=== PATIENT | female | born 1970 | race Caucasian/White ===

== ENCOUNTER 2017-11-10 11:57 | Observation (INO) | payer BC ==
--- NOTE | 2017-11-10 12:18 | ER Document Report ---
ED Medical Screen (RME) - General Chief Complaint: Dizziness Stated Complaint: BLOOD PRESSURE ISSUE Time Seen by Provider: 11/10/17 12:11 Notes: 47-year-old female patient comes emerged from complaining of feeling dizzy this morning. She states sometimes it happens when her sugar drops that she ate but it did not help. She was at work and felt bad and had her blood pressure checked. It was 158/110, she also developed a numbness and tingling into her left arm. She has a history of hypertension treated with only HCTZ, hypothyroidism, and takes Cymbalta. She notes that she has had peripheral edema involving her feet ankles and hands for the past 2 days. I have greeted and performed a rapid initial assessment of this patient. A comprehensive ED assessment and evaluation of the patient, analysis of test results and completion of the medical decision making process will be conducted by additional ED providers. - Related Data Allergies/Adverse Reactions: codeine Allergy (Verified 11/10/17 11:59) morphine Allergy (Verified 11/10/17 11:59) Sulfa (Sulfonamide Antibiotics) Allergy (Verified 11/10/17 11:59) Physical Exam - Vital signs Vitals: Temp Pulse Resp BP Pulse Ox 98.4 F 78 14 130/91 H 97 11/10/17 12:09 11/10/17 12:09 11/10/17 12:09 11/10/17 12:09 11/10/17 12:09 Course - Vital Signs Vital signs: Temp Pulse Resp BP Pulse Ox 98.4 F 78 14 130/91 H 97 11/10/17 12:09 11/10/17 12:09 11/10/17 12:09 11/10/17 12:09 11/10/17 12:09
[2017-11-10 12:52] LABS: ABSOLUTE BASOPHILS # (AUTO) 0.1 10^3/uL (0.0-0.2); ABSOLUTE EOSINOPHILS # (AUTO) 0.3 10^3/uL (0.0-0.6); ABSOLUTE LYMPHOCYTES (AUTO) 1.9 10^3/uL (0.5-4.7); ABSOLUTE MONOCYTES (AUTO) 0.5 10^3/uL (0.1-1.4); BASOPHILS % (AUTO) 0.8 % (0-2); EOSINOPHILS % (AUTO) 4.2 % (0-6); HEMATOCRIT 35.8 % (36.0-47.0); HEMOGLOBIN 12.4 g/dL (12.0-15.5); LYMPHOCYTES % (AUTO) 28.1 % (13-45); MEAN CORPUSCULAR HEMOGLOBIN 28.9 pg (27.0-33.4); MEAN CORPUSCULAR HGB CONC 34.5 g/dL (32.0-36.0); MEAN CORPUSCULAR VOLUME 84 fl (80-97); MONOCYTES % (AUTO) 7.6 % (3-13); PLATELET COUNT 302 10^3/uL (150-450); RED BLOOD COUNT 4.28 10^6/uL (3.72-5.28); RED CELL DISTRIBUTION WIDTH 13.8 % (11.5-14.0); SEGMENTED NEUTROPHILS % (AUTO) 59.3 % (42-78); TOTAL CELLS COUNTED % (AUTO) 100 %; WHITE BLOOD COUNT 6.8 10^3/uL (4.0-10.5)
--- NOTE | 2017-11-10 12:54 | RADIOLOGY REPORT (SQ) ---
EXAM DESCRIPTION: CHEST 2 VIEWS COMPLETED DATE/TIME: 11/10/2017 12:45 pm REASON FOR STUDY: High blood pressure, left arm numbness tingling COMPARISON: None. EXAM PARAMETERS: NUMBER OF VIEWS: two views TECHNIQUE: Digital Frontal and Lateral radiographic views of the chest acquired. RADIATION DOSE: NA LIMITATIONS: none FINDINGS: LUNGS AND PLEURA: No opacities, masses or pneumothorax. No pleural effusion. MEDIASTINUM AND HILAR STRUCTURES: No masses or contour abnormalities. HEART AND VASCULAR STRUCTURES: Heart normal size. No evidence for failure. BONES: No acute findings. HARDWARE: None in the chest. Clips right upper quadrant post cholecystectomy OTHER: No other significant finding. IMPRESSION: NO ACUTE RADIOGRAPHIC FINDING IN THE CHEST. TECHNICAL DOCUMENTATION: JOB ID: [id number] [employer]- All Rights Reserved Reading location - IP/workstation name: [email or web address]
[2017-11-10 13:03] LABS: ALANINE AMINOTRANSFERASE 50 U/L (9-52); ALBUMIN 3.9 g/dL (3.5-5.0); ALKALINE PHOSPHATASE 114 U/L (38-126); ANION GAP 7 (5-19); ASPARTATE AMINO TRANSFERASE 37 U/L (14-36); BILIRUBIN,DIRECT 0.4 mg/dL (0.0-0.4); BILIRUBIN,TOTAL 0.5 mg/dL (0.2-1.3); BLOOD UREA NITROGEN 14 mg/dL (7-20); CARBON DIOXIDE 34 mmol/L (22-30); CHLORIDE 101 mmol/L (98-107); CREATINE KINASE 96 U/L (30-135); GLUCOSE 110 mg/dL (75-110); POTASSIUM 3.8 mmol/L (3.6-5.0); SODIUM 142.4 mmol/L (137-145); TOTAL PROTEIN 6.9 g/dL (6.3-8.2)
[2017-11-10 13:07] LABS: APPEARANCE,URINE CLEAR; BILIRUBIN,URINE NEGATIVE (NEGATIVE); COLOR,URINE STRAW; GLUCOSE, URINE NEGATIVE (NEGATIVE); KETONES,URINE NEGATIVE (NEGATIVE); LEUKOCYTE ESTERASE,URINE NEGATIVE (NEGATIVE); NITRITE,URINE NEGATIVE (NEGATIVE); PROTEIN,URINE NEGATIVE (NEGATIVE); URINE SPECIFIC GRAVITY 1.006; UROBILINOGEN,URINE NEGATIVE mg/dL (<2.0)
[2017-11-10 13:14] LABS: CREATINE KINASE MB 0.97 ng/mL (<4.55)
[2017-11-10 13:15] LABS: TROPONIN I < 0.012 ng/mL
--- NOTE | 2017-11-10 14:39 | ER Document Report ---
ED General - General Chief Complaint: Dizziness Stated Complaint: BLOOD PRESSURE ISSUE Time Seen by Provider: 11/10/17 14:00 Mode of Arrival: Ambulatory Information source: Patient Notes: I have seen and examined patient at 1400 47-year-old female with a history of fibromyalgia, hypertension, hypothyroidism , hypoglycemia and GERD who presents to the emergency room with left arm tingling for approximately 24 hours, dizziness, sense of imbalance since early this morning. Time of onset of the sense of imbalance is not quite clear: Patient did notice symptoms between 630 and 7:30 AM this morning. Patient did state that she checked her blood pressure at work and it was 185/110. Patient' s states that he spoke to his over the phone and she sounded a little bit out of breath and her speech sounded a little slurred but that when he met her at the hospital, her speech is normal. - HPI Onset: Yesterday Onset/Duration: Gradual Quality of pain: No pain Severity: None Pain Level: Denies Associated symptoms: denies: Chest pain, Fever, Shortness of breath Exacerbated by: Denies Relieved by: Denies Similar symptoms previously: No Recently seen / treated by doctor: No - Related Data Allergies/Adverse Reactions: codeine Allergy (Verified 11/10/17 11:59) morphine Allergy (Verified 11/10/17 11:59) Sulfa (Sulfonamide Antibiotics) Allergy (Verified 11/10/17 11:59) onions Allergy (Uncoded 11/10/17 18:44) Past Medical History - General Information source: Patient - Social History Smoking Status: Never Smoker Cigarette use (# per day): No Chew tobacco use (# tins/day): No Frequency of alcohol use: Occasional Drug Abuse: None Lives with: Family Family History: None Patient has suicidal ideation: No Patient has homicidal ideation: No - Past Medical History Cardiac Medical History: Reports: Hx Hypertension Pulmonary Medical History: Reports: None EENT Medical History: Reports: None Neurological Medical History: Reports: None Endocrine Medical History: Reports: Hx Hypothyroidism, Other - Hypoglycemia Renal/ Medical History: Reports: None. Denies: Hx Peritoneal Dialysis Malignancy Medical History: Reports: None GI Medical History: Reports: Hx Gastroesophageal Reflux Disease Musculoskeletal Medical History: Reports Hx Fibromyalgia Traumatic Medical History: Reports: None Infectious Medical History: Reports: None Surgical Hx: Negative Review of Systems - Review of Systems Constitutional: denies: Chills, Fever EENT: No symptoms reported Cardiovascular: Dizziness - Elevated blood pressure Respiratory: No symptoms reported Gastrointestinal: No symptoms reported Genitourinary: No symptoms reported Female Genitourinary: No symptoms reported Musculoskeletal: See HPI Skin: No symptoms reported Hematologic/Lymphatic: No symptoms reported Neurological/Psychological: See HPI Physical Exam - Vital signs Vitals: Temp Pulse Resp BP Pulse Ox 98.4 F 78 14 130/91 H 97 11/10/17 12:09 11/10/17 12:09 11/10/17 12:09 11/10/17 12:09 11/10/17 12:09 Notes: Physical exam: GENERAL: Patient is alert and oriented x3, no acute distress, conversant, blood pressure is 120/87 with a pulse of 80, respiratory rate of 18, O2 sat 98% on room air HEAD: Atraumatic, normocephalic. EYES: Pupils equal round and reactive to light, extraocular movements intact, sclera anicteric, conjunctiva are normal. ENT: TMs normal, nares patent, oropharynx clear without exudates. Moist mucous membranes. NECK: Normal range of motion, supple without obvious mass or JVD. LUNGS: Breath sounds clear to auscultation bilaterally and equal. No wheezes rales or rhonchi. HEART: Regular rate and rhythm without murmurs, rubs or gallops. ABDOMEN: Soft, normoactive bowel sounds. No tenderness to palpation. No guarding, no rebound. No masses appreciated. EXTREMITIES: Normal range of motion, no pitting or edema. No clubbing or cyanosis. NEUROLOGICAL: Cranial nerves II through XII grossly intact. Normal speech, moving all extremities. His motor is 5/5 upper extremities, 4/5 to the left lower extremity, 5/5 right lower extremity, cerebellar (finger to nose is good). NIH score at 1410 patient is alert and keenly responsive, she does know the month and her age, she is able to perform commands appropriately, her gaze is normal, her visual kellogg are very good, she has no facial palsy, she has no motor arm drift on the right side, she does have drift but does not touch the bed for the left upper extremity (1), she does have left lower extremity drift but it does not touch the bed (1), right lower extremity has no drift, no ataxia , no sensory deficit, best language is normal, there is no dysarthria, there is no extension or inattention. Her NIH score is 2. She definitely has some left- sided weakness. PSYCH: Normal mood, normal affect. SKIN: Warm, Dry, normal turgor, no rashes or lesions noted. Course - Re-evaluation Re-evalutation: 11/10/17 16:01 Note: Patient has left-sided weakness in the setting of elevated blood pressure. Her symptoms of onset was somewhere between 7 hours prior to my exam and longer (sometime yesterday). She does not meet criteria for thrombolytics based upon the time of onset (greater than 7 hours at a minimum, possibly up to 19 hours). Her NIH score is 2. CTA head shows no obvious lesions necessitating transfer. The plan will be to admit her for further evaluation. 11/10/17 22:54 - Vital Signs Vital signs: Temp Pulse Resp BP Pulse Ox 98.4 F 80 20 115/63 98 11/10/17 20:13 11/10/17 20:13 11/10/17 20:13 11/10/17 20:13 11/10/17 20:13 - Laboratory Result Diagrams: 11/10/17 12:23 11/10/17 12:23 Laboratory results interpreted by me: 11/10/17 11/10/17 12:23 12:23 Hct 35.8 L Carbon Dioxide 34 H AST 37 H - Diagnostic Test Radiology reviewed: Image reviewed, Reports reviewed - CT of the head, CTA of the head and neck: Show no lesions - EKG Interpretation by Me Rate: Normal Rhythm: NSR - EKG shows normal sinus rhythm with a ventricular rate of 79, no acute ST elevation. Critical Care Note - Critical Care Note Total time excluding time spent on procedures (mins): 60 Discharge - Discharge Clinical Impression: CVA Condition: Stable Disposition: ADMITTED INPATIENT Admitting Provider: Hospitalist - Dr Irving Unit Admitted: [facility]
--- NOTE | 2017-11-10 15:21 | RADIOLOGY REPORT (SQ) ---
EXAM DESCRIPTION: CT HEAD WITHOUT; CTA NECK; CTA HEAD COMPLETED DATE/TIME: 11/10/2017 3:03 pm REASON FOR STUDY: left sided weakness COMPARISON: None. TECHNIQUE: Precontrast standard brain CT scanning performed. Axial dynamic scanning technique with dynamic contrast enhancement through the extra-cranial carotid and vertebral arteries and [place]. Multiplanar reconstruction. 3-D MIPS and Volume-rendered images acquired at the workstati on and saved to PACS. Images are reviewed in brain, subdural, soft tissue, bone, lung windows. All CT scanners at this facility use dose modulation, iterative reconstruction, and/or weight based d osing when appropriate to reduce radiation dose to as low as reasonably achievable (ALARA). [facility]: Dose Right [facility]: CareDose [facility]: Dose Right [facility]: Teradose 4D [facility]: [employer] CONTRAST TYPE AND DOSE: contrast/concentration: Isovue 350.00 mg/ml; Total Contrast Delivered: 70.0 ml; Total Saline Delivered: 75.0 ml RENAL FUNCTION: Creatinine 0.75 LIMITATIONS: None. FINDINGS: Brain: No acute abnormality. Normal ventricles. No hemorrhage or mass or shift or orbital pathology. Bone s intact. Paranasal sinuses clear. CTA neck: Normal visualized aortic arch. Normal 3 vessel origin. Bilateral subclavian arteries look patent. Right common, internal and external carotid arteries are widely patent. Left common, internal and ex ternal carotid arteries are widely patent. Bilateral vertebral arteries are patent. Presumed large bulla in the left upper lobe. Pneumothorax less likely. Incomplete evaluation. Radiographs from [facility] fail to show any pneumothorax here. CTA [place]: Distal vertebral and basilar arteries are patent. Distal internal carotids, bilateral anterior and m iddle and posterior cerebral arteries are patent. No evidence of aneurysm or occlusion. No enhancin g brain lesions. OTHER: No other significant finding. OTHER: 3-D reconstructions confirm findings. IMPRESSION: 1. Negative noncontrast CT brain. 2. Negative CTA [place]. 3. Negative CTA carotids. 4. Apical lung changes as above, suspect a large bulla in the left apex. COMMENT: Quality ID #[id number]: Measurements of distal internal carotid diameter were used as the denomina tor for stenosis measurement. TECHNICAL DOCUMENTATION: JOB ID: [id number] Quality ID # [id number]: Final reports with documentation of one or more dose reduction techniques (e.g., Au tomated exposure control, adjustment of the mA and/or kV according to patient size, use of iterative reconstruction technique) 2010 [employer]- All Rights Reserved Reading location - IP/workstation name: [email or web address]
--- NOTE | 2017-11-10 15:21 | RADIOLOGY REPORT (SQ) ---
EXAM DESCRIPTION: CT HEAD WITHOUT; CTA NECK; CTA HEAD COMPLETED DATE/TIME: 11/10/2017 3:03 pm REASON FOR STUDY: left sided weakness COMPARISON: None. TECHNIQUE: Precontrast standard brain CT scanning performed. Axial dynamic scanning technique with dynamic contrast enhancement through the extra-cranial carotid and vertebral arteries and [place]. Multiplanar reconstruction. 3-D MIPS and Volume-rendered images acquired at the workstati on and saved to PACS. Images are reviewed in brain, subdural, soft tissue, bone, lung windows. All CT scanners at this facility use dose modulation, iterative reconstruction, and/or weight based d osing when appropriate to reduce radiation dose to as low as reasonably achievable (ALARA). [facility]: Dose Right [facility]: CareDose [facility]: Dose Right [facility]: Teradose 4D [facility]: [employer] CONTRAST TYPE AND DOSE: contrast/concentration: Isovue 350.00 mg/ml; Total Contrast Delivered: 70.0 ml; Total Saline Delivered: 75.0 ml RENAL FUNCTION: Creatinine 0.75 LIMITATIONS: None. FINDINGS: Brain: No acute abnormality. Normal ventricles. No hemorrhage or mass or shift or orbital pathology. Bone s intact. Paranasal sinuses clear. CTA neck: Normal visualized aortic arch. Normal 3 vessel origin. Bilateral subclavian arteries look patent. Right common, internal and external carotid arteries are widely patent. Left common, internal and ex ternal carotid arteries are widely patent. Bilateral vertebral arteries are patent. Presumed large bulla in the left upper lobe. Pneumothorax less likely. Incomplete evaluation. Radiographs from [facility] fail to show any pneumothorax here. CTA [place]: Distal vertebral and basilar arteries are patent. Distal internal carotids, bilateral anterior and m iddle and posterior cerebral arteries are patent. No evidence of aneurysm or occlusion. No enhancin g brain lesions. OTHER: No other significant finding. OTHER: 3-D reconstructions confirm findings. IMPRESSION: 1. Negative noncontrast CT brain. 2. Negative CTA [place]. 3. Negative CTA carotids. 4. Apical lung changes as above, suspect a large bulla in the left apex. COMMENT: Quality ID #[id number]: Measurements of distal internal carotid diameter were used as the denomina tor for stenosis measurement. TECHNICAL DOCUMENTATION: JOB ID: [id number] Quality ID # [id number]: Final reports with documentation of one or more dose reduction techniques (e.g., Au tomated exposure control, adjustment of the mA and/or kV according to patient size, use of iterative reconstruction technique) 2010 [employer] ([employer])- All Rights Reserved Reading location - IP/workstation name: [email or web address]
--- NOTE | 2017-11-10 15:21 | RADIOLOGY REPORT (SQ) ---
EXAM DESCRIPTION: CT HEAD WITHOUT; CTA NECK; CTA HEAD COMPLETED DATE/TIME: 11/10/2017 3:03 pm REASON FOR STUDY: left sided weakness COMPARISON: None. TECHNIQUE: Precontrast standard brain CT scanning performed. Axial dynamic scanning technique with dynamic contrast enhancement through the extra-cranial carotid and vertebral arteries and [place]. Multiplanar reconstruction. 3-D MIPS and Volume-rendered images acquired at the workstati on and saved to PACS. Images are reviewed in brain, subdural, soft tissue, bone, lung windows. All CT scanners at this facility use dose modulation, iterative reconstruction, and/or weight based d osing when appropriate to reduce radiation dose to as low as reasonably achievable (ALARA). [facility]: Dose Right [facility]: CareDose [facility]: Dose Right [facility]: Teradose 4D [facility]: [employer] CONTRAST TYPE AND DOSE: contrast/concentration: Isovue 350.00 mg/ml; Total Contrast Delivered: 70.0 ml; Total Saline Delivered: 75.0 ml RENAL FUNCTION: Creatinine 0.75 LIMITATIONS: None. FINDINGS: Brain: No acute abnormality. Normal ventricles. No hemorrhage or mass or shift or orbital pathology. Bone s intact. Paranasal sinuses clear. CTA neck: Normal visualized aortic arch. Normal 3 vessel origin. Bilateral subclavian arteries look patent. Right common, internal and external carotid arteries are widely patent. Left common, internal and ex ternal carotid arteries are widely patent. Bilateral vertebral arteries are patent. Presumed large bulla in the left upper lobe. Pneumothorax less likely. Incomplete evaluation. Radiographs from [facility] fail to show any pneumothorax here. CTA [place]: Distal vertebral and basilar arteries are patent. Distal internal carotids, bilateral anterior and m iddle and posterior cerebral arteries are patent. No evidence of aneurysm or occlusion. No enhancin g brain lesions. OTHER: No other significant finding. OTHER: 3-D reconstructions confirm findings. IMPRESSION: 1. Negative noncontrast CT brain. 2. Negative CTA [place]. 3. Negative CTA carotids. 4. Apical lung changes as above, suspect a large bulla in the left apex. COMMENT: Quality ID #[id number]: Measurements of distal internal carotid diameter were used as the denomina tor for stenosis measurement. TECHNICAL DOCUMENTATION: JOB ID: [id number] Quality ID # [id number]: Final reports with documentation of one or more dose reduction techniques (e.g., Au tomated exposure control, adjustment of the mA and/or kV according to patient size, use of iterative reconstruction technique) 2010 [employer] All Rights Reserved Reading location - IP/workstation name: [email or web address]
[2017-11-10] MEDS ORDERED: ACETAMINOPHEN 325 MG TABLET PO PRN (17:15)
[2017-11-10] MEDS ORDERED: NORMAL SALINE 1000 ML 1,000 ML IV PRN (17:15)
--- NOTE | 2017-11-10 17:44 | PDOC H&P ---
History of Present Illness Admission Date/PCP: 11/10/17 16:32 Patient complains of: Left upper extremity numbness and tingling History of Present Illness: JAYSON OLSEN is a 47 year old female past medical history of hypertension , irritable bowel syndrome, hypothyroidism, fibromyalgia, hypokalemia, GERD, precancerous colonic polyp last colonoscopy/upper GI endoscopy 3 years ago. Patient gets colonoscopy every 5 years. Patient presented to ED complaining of numbness and tingling on the left upper extremity and weakness on the left leg. Patient states that yesterday evening she started having tingling on her left side of the neck going down to the left upper extremity. She did not make too much of it the following day at work she noticed that her left upper extremity tingling increased accompanied with dizziness and left lower extremity weakness. Patient denies any palpitation, chest pain or loss of consciousness however she states that she was out of balance, when walking she would lean to the right side. She denies any fever, chills, nausea, vomiting, diarrhea, constipation or any urinary symptoms. Past Medical History EENT Medical History: Reports: Cataracts Endocrine Medical History: Reports: Hyperthyroidism Renal/ Medical History: Reports: None Malignancy Medical History: Reports: None GI Medical History: Reports: Gastroesophageal Reflux Disease Musculoskeltal Medical History: Reports: Fibromyalgia Past Surgical History Past Surgical History: Reports: None, Cholecystectomy Social History Smoking Status: Never Smoker Family History Family History: None Parental Family History Reviewed: Yes Children Family History Reviewed: Yes Sibling(s) Family History Reviewed.: Yes Medication/Allergy Allergies/Adverse Reactions: codeine Allergy (Verified 11/10/17 11:59) morphine Allergy (Verified 11/10/17 11:59) Sulfa (Sulfonamide Antibiotics) Allergy (Verified 11/10/17 11:59) Review of Systems All systems: reviewed and no additional remarkable complaints except as stated Physical Exam Vital Signs: Temp Pulse Resp BP Pulse Ox 98.4 F 75 22 H 121/78 97 11/10/17 12:09 11/10/17 15:17 11/10/17 17:01 11/10/17 17:01 11/10/17 17:01 General appearance: PRESENT: no acute distress, well-developed, well-nourished Head exam: PRESENT: atraumatic, normocephalic Eye exam: PRESENT: conjunctiva pink, EOMI, PERRLA. ABSENT: scleral icterus Ear exam: PRESENT: normal external ear exam Mouth exam: PRESENT: moist, tongue midline Neck exam: ABSENT: carotid bruit, JVD, lymphadenopathy, thyromegaly Respiratory exam: PRESENT: clear to auscultation cesar. ABSENT: rales, rhonchi, wheezes Cardiovascular exam: PRESENT: RRR. ABSENT: diastolic murmur, rubs, systolic murmur Pulses: PRESENT: normal dorsalis pedis pul Vascular exam: PRESENT: normal capillary refill GI/Abdominal exam: PRESENT: normal bowel sounds, soft. ABSENT: distended, guarding, mass, organolmegaly, rebound, tenderness Rectal exam: PRESENT: deferred Extremities exam: PRESENT: full ROM. ABSENT: calf tenderness, clubbing, pedal edema Neurological exam: PRESENT: alert, awake, oriented to person, oriented to place , oriented to time, oriented to situation, CN II-XII grossly intact, motor sensory deficit - Left quadricep strength 4/5 Loss of sensation on left third metacarpal., normal gait Psychiatric exam: PRESENT: appropriate affect, normal mood. ABSENT: homicidal ideation, suicidal ideation Skin exam: PRESENT: dry, intact, warm. ABSENT: cyanosis, rash Results Laboratory Results: 11/10/17 16:37 Troponin I < 0.012 Impressions: Chest X-Ray 11/10/17 12:16 IMPRESSION: NO ACUTE RADIOGRAPHIC FINDING IN THE CHEST. Head CT 11/10/17 14:35 IMPRESSION: 1. Negative noncontrast CT brain. 2. Negative CTA [place]. 3. Negative CTA carotids. 4. Apical lung changes as above, suspect a large bulla in the left apex. Head CTA 11/10/17 14:39 IMPRESSION: 1. Negative noncontrast CT brain. 2. Negative CTA [place]. 3. Negative CTA carotids. 4. Apical lung changes as above, suspect a large bulla in the left apex. Neck CTA 11/10/17 14:39 IMPRESSION: 1. Negative noncontrast CT brain. 2. Negative CTA [place]. 3. Negative CTA carotids. 4. Apical lung changes as above, suspect a large bulla in the left apex. Assessment & Plan - Diagnosis (1) TIA (transient ischemic attack) Is this a current diagnosis for this admission?: Yes Plan: CT head negative CTA head and neck negative. Troponins and EKG unremarkable. Admit to telemetry. 2D echo, MRI brain ordered. Will start on low-dose aspirin and statins. PT OT ST (2) HTN (hypertension) Qualifiers: Hypertension type: essential hypertension Qualified Code(s): I10 - Essential (primary) hypertension Is this a current diagnosis for this admission?: No Plan: Resume lisinopril at 20 mg. Adjust dosage as needed. Monitor vitals (3) Hyperthyroidism Is this a current diagnosis for this admission?: No Plan: Restart levothyroxine. No signs of hyper or hypothyroidism on physical examination and review of system (4) Fibromyalgia Is this a current diagnosis for this admission?: No Plan: Restart Cymbalta. (5) GERD (gastroesophageal reflux disease) Is this a current diagnosis for this admission?: Yes Plan: Will start on PPIs. Patient has had upper GI endoscopy 3 years ago which was normal.
--- NOTE | 2017-11-10 18:33 | RADIOLOGY REPORT (SQ) ---
EXAM DESCRIPTION: MRI HEAD WITHOUT COMPLETED DATE/TIME: 11/10/2017 6:20 pm REASON FOR STUDY: TIA COMPARISON: Brain CT scan dated 11/10/2017 TECHNIQUE: Multiplanar imaging includes non-contrasted T1, T2, FLAIR, and diffusion with ADC map seq uences. Images stored on PACS. LIMITATIONS: None. FINDINGS: ANATOMY: No anomalies. Normal vascular flow voids. Pituitary fossa normal. CSF SPACES: Normal in size and contour. No hemorrhage. CEREBRUM: Sulci and gyri normal in size and contour. Normal white matter signal on FLAIR imaging. No evidence of hemorrhage, mass, or extraaxial fluid collection. POSTERIOR FOSSA: No signal alteration. No hemorrhage. No edema, masses or mass effect. Internal nancy tory canals, cerebello-pontine angles, mastoids normal. DIFFUSION IMAGING: Negative for acute or sub-acute infarction. ORBITS: No masses. Globes normal. PARANASAL SINUSES: No fluid levels. Mucosa normal. OTHER: No other significant finding. IMPRESSION: NORMAL MRI OF THE BRAIN WITHOUT INTRAVENOUS GADOLINIUM CONTRAST. EVIDENCE OF ACUTE STROKE: NO. TECHNICAL DOCUMENTATION: JOB ID: [id number] [employer]- All Rights Reserved Reading location - IP/workstation name: [email or web address]
--- NOTE | 2017-11-10 20:23 | EKG REPORT ---
SEVERITY:- NORMAL ECG - SINUS RHYTHM : Confirmed by: Estelle Huerta 10-Nov-2017 20:23:03
--- NOTE | 2017-11-10 20:23 | EKG REPORT ---
SEVERITY:- NORMAL ECG - SINUS RHYTHM : Confirmed by: Estelle Huerta 10-Nov-2017 20:22:54
[2017-11-10] MEDS ORDERED: ATORVASTATIN CALCIUM 10 MG TABLET PO SCH (22:00)
[2017-11-10] MEDS ORDERED: FAMOTIDINE 20 MG TABLET PO SCH (22:00)
[2017-11-10] MEDS: GABAPENTIN 300 MG CAPSULE PO SCH (22:16)
[2017-11-10] MEDS: CHOLESTYRAMINE/ASPARTAME 4 GM PACKET PO SCH (22:16)
[2017-11-11 05:02] LABS: ABSOLUTE EOSINOPHILS # (AUTO) 0.3 10^3/uL (0.0-0.6); ABSOLUTE LYMPHOCYTES (AUTO) 1.9 10^3/uL (0.5-4.7); ABSOLUTE MONOCYTES (AUTO) 0.5 10^3/uL (0.1-1.4); ABSOLUTE NEUT (AUTO) 3.9 10^3/uL (1.7-8.2); BASOPHILS % (AUTO) 0.7 % (0-2); EOSINOPHILS % (AUTO) 4.5 % (0-6); HEMATOCRIT 32.9 % (36.0-47.0); HEMOGLOBIN 11.6 g/dL (12.0-15.5); LYMPHOCYTES % (AUTO) 28.5 % (13-45); MEAN CORPUSCULAR HGB CONC 35.2 g/dL (32.0-36.0); MEAN CORPUSCULAR VOLUME 82 fl (80-97); MONOCYTES % (AUTO) 7.4 % (3-13); PLATELET COUNT 251 10^3/uL (150-450); RED CELL DISTRIBUTION WIDTH 13.4 % (11.5-14.0); SEGMENTED NEUTROPHILS % (AUTO) 58.9 % (42-78); TOTAL CELLS COUNTED % (AUTO) 100 %; WHITE BLOOD COUNT 6.6 10^3/uL (4.0-10.5)
[2017-11-11 05:21] LABS: ALANINE AMINOTRANSFERASE 49 U/L (9-52); ALKALINE PHOSPHATASE 85 U/L (38-126); ANION GAP 8 (5-19); ASPARTATE AMINO TRANSFERASE 31 U/L (14-36); BILIRUBIN,DIRECT 0.2 mg/dL (0.0-0.4); BILIRUBIN,TOTAL 0.6 mg/dL (0.2-1.3); BLOOD UREA NITROGEN 13 mg/dL (7-20); CALCIUM 8.4 mg/dL (8.4-10.2); CARBON DIOXIDE 29 mmol/L (22-30); CHLORIDE 106 mmol/L (98-107); CHOLESTEROL 135.08 mg/dL (0-200); GLUCOSE 107 mg/dL (75-110); POTASSIUM 3.3 mmol/L (3.6-5.0); SODIUM 142.7 mmol/L (137-145); TOTAL PROTEIN 5.7 g/dL (6.3-8.2); TRIGLYCERIDES 85 mg/dL (<150)
[2017-11-11 05:33] LABS: DIRECT LDL 71 mg/dL (<100)
[2017-11-11] MEDS ORDERED: LEVOTHYROXINE SODIUM 0.1 MG TABLET PO SCH (06:00)
[2017-11-11] MEDS ORDERED: LANSOPRAZOLE 30 MG TAB.RAP.DR PO SCH (06:00)
[2017-11-11] MEDS: CHOLESTYRAMINE/ASPARTAME 4 GM PACKET PO SCH ×2 (08:53→13:18)
[2017-11-11] MEDS ORDERED: LISINOPRIL 10 MG TABLET PO SCH (10:00)
[2017-11-11] MEDS ORDERED: DULOXETINE HCL 30 MG CAPSULE.DR PO SCH (10:00)
[2017-11-11] MEDS ORDERED: ASPIRIN 81 MG TABLET, ENT COATED PO SCH (10:00)
[2017-11-11] MEDS ORDERED: ENOXAPARIN SODIUM INJ 40 MG/0.4 ML DISP.SYRIN SUBCUT SCH (10:00)
--- NOTE | 2017-11-11 10:22 | RADIOLOGY REPORT (SQ) ---
EXAM DESCRIPTION: CAROTID DOPPLER COMPLETED DATE/TIME: 11/10/2017 8:23 pm REASON FOR STUDY: TIA COMPARISON: None. TECHNIQUE: Grayscale ultrasound, Doppler velocity and spectra, and color Doppler images acquired of the extra-cranial carotid and vertebral arteries. Images stored on PACS. LIMITATIONS: None. FINDINGS: RIGHT CAROTID CCA Velocities: Within normal limits. ICA Velocities Peak systolic 0.86 m/s. End diastolic 0.36 m/s. Proximal ICA/CCA peak systolic ratio 1.4. Spectra normal. No significant plaque. LEFT CAROTID CCA Velocities: Within normal limits. ICA Velocities Peak systolic 0.78 m/s. End diastolic 0.11 m/s. Proximal ICA/CCA peak systolic ratio 0.8. Mild homogeneous plaque in the bulb. VERTEBRAL ARTERIES: Antegrade flow. Normal waveforms. SUBCLAVIAN ARTERIES: Not imaged. OTHER: No other significant finding. IMPRESSION: NO HEMODYNAMICALLY SIGNIFICANT STENOSIS. COMMENT: Quality ID #[id number]: Velocity criteria are extrapolated from the diameter data as defined by t he Society of Radiologists in Ultrasound Consensus Conference. Radiology 2003: 229; 340-346. TECHNICAL DOCUMENTATION: JOB ID: [id number] [employer]- All Rights Reserved Reading location - IP/workstation name: [email or web address]
[2017-11-11] MEDS: GABAPENTIN 300 MG CAPSULE PO SCH (10:59)
--- NOTE | 2017-11-11 14:26 | XCELERA REPORT ---
[address] [address] Transthoracic Echocardiogram Report Name: JAYSON OLSEN Age: 47 yrs Gender: Female : 1970 Patient Status: Inpatient Patient Location: [address] [place] [address] Study Date: 11/11/2017 08:56 AM Procedure: A two-dimensional transthoracic echocardiogram with color flow and Doppler was performed. The study was technically difficult with many images being suboptimal in quality. Reason For Study: TIA History: TIA. Ordering Physician: JUMA BUNCH Performed By: Chari Maurice Interpretation Summary There is no obvious cardiac source of embolus noted on this transthoracic echocardiogram. Follow-up with a [place] is suggested if cardiac source is still suspected. The left ventricle is normal in size. There is normal left ventricular wall thickness. Left ventricular systolic function is normal. LV EF is 65% Doppler measurements suggest normal left ventricular diastolic function The left ventricular wall motion is normal. There is no thrombus. The right ventricle is grossly normal size. The right ventricle is not well visualized secondary to technical limitations The right atrium is normal. The left atrial size is normal. There is no evidence of mitral valve prolapse. There is no vegetation seen on the mitral valve. There is no mitral valve stenosis. There is a trace amount of mitral regurgitation There is no aortic valvular vegetation. There is no aortic valve stenosis There is no LVOT obstruction. No aortic regurgitation is present. There is no tricuspid stenosis. Right ventricular systolic pressure is normal. RVSP is 27 mm of Hg , with RA mean of 5. There is a trace to mild amount of tricuspid regurgitation There is no pulmonic valvular stenosis. There is no pulmonic valvular regurgitation. The aortic root is normal size. There is no pericardial effusion. There is no obvious cardiac source of embolus noted on this transthoracic echocardiogram. Follow-up with a [place] is suggested if cardiac source is still suspected MMode/2D Measurements & Calculations RVDd: 3.1 cm LVIDd: 5.4 cm FS: 38.0 % Ao root diam: IVSd: 0.74 cm LVIDs: 3.3 cm EDV(Teich): 3.0 cm LVPWd: 0.67 cm 138.8 ml Ao root area: ESV(Teich): 44.9 ml6.9 cm2 EF(Teich): 67.7 % EDV(MOD-sp4): SV(MOD-sp4): 59.7 ml 45.1 ml ESV(MOD-sp4): 14.6 ml EF(MOD-sp4): 75.5 % Doppler Measurements & Calculations MV E max matty: MV dec slope: Ao V2 max: LV V1 max P.5 cm/sec 657.6 cm/sec2 145.2 cm/sec 6.3 mmHg MV A max matty: MV dec time: 0.15 secAo max PG: LV V1 max: 62.7 cm/sec 8.4 mmHg 125.1 cm/sec MV E/A: 1.6 PA V2 max: TR max matty: 94.7 cm/sec 233.2 cm/sec PA max P.6 mmHg TR max P.7 mmHg Left Ventricle The left ventricle is normal in size. There is normal left ventricular wall thickness. Left ventricular systolic function is normal. LV EF is 65%. Doppler measurements suggest normal left ventricular diastolic function. The left ventricular wall motion is normal. There is no thrombus. Right Ventricle The right ventricle is grossly normal size. The right ventricle is not well visualized secondary to technical limitations. Atria The right atrium is normal. The left atrial size is normal. Mitral Valve There is no evidence of mitral valve prolapse. There is no vegetation seen on the mitral valve. There is no mitral valve stenosis. There is a trace amount of mitral regurgitation. Aortic Valve There is no aortic valvular vegetation. There is no aortic valve stenosis. There is no LVOT obstruction. No aortic regurgitation is present. Tricuspid Valve There is no tricuspid stenosis. Right ventricular systolic pressure is normal. RVSP is 27 mm of Hg , with RA mean of 5. There is a trace to mild amount of tricuspid regurgitation. Pulmonic Valve There is no pulmonic valvular stenosis. There is no pulmonic valvular regurgitation. Great Vessels The aortic root is normal size. Effusions There is no pericardial effusion. : JUMA BUNCH > Eleanor Lynn
[2017-11-11 14:51] VITALS: BP 117/76
--- NOTE | 2017-11-11 15:48 | PDOC DISCHARGE SUMMARY ---
General - Admit/Disc Date/PCP Admission Date/Primary Care Provider: 11/10/17 16:32 Discharge Date: 11/11/17 - Discharge Diagnosis (1) TIA (transient ischemic attack) Is this a current diagnosis for this admission?: Yes (2) HTN (hypertension) Is this a current diagnosis for this admission?: No (3) Hyperthyroidism Is this a current diagnosis for this admission?: No (4) Fibromyalgia Is this a current diagnosis for this admission?: No (5) GERD (gastroesophageal reflux disease) Is this a current diagnosis for this admission?: Yes - Additional Information Resuscitation Status: Full Code Prescriptions: Aspirin [Ecotrin 81 mg EC Tablet] 81 mg PO DAILY 30 Days #30 tabec Atorvastatin Calcium [Lipitor 10 mg Tablet] 10 mg PO QHS 30 Days #30 tablet Home Medications: Duloxetine HCl [Cymbalta] 30 mg PO DAILY 11/10/17 Gabapentin [Neurontin 300 mg Capsule] 300 mg PO Q8 11/10/17 Hydrochlorothiazide [Hydrodiuril 12.5 mg Capsule] 12.5 mg PO DAILY 11/10/17 Levothyroxine Sodium [Synthroid 0.025 mg Tablet] 0.025 mg PO Q6AM 11/10/17 Lisinopril 40 mg PO DAILY 11/10/17 Pantoprazole Sodium 40 mg PO DAILY 11/10/17 Potassium Chloride [Klor-Con M10] 10 meq PO DAILY 11/10/17 Aspirin [Ecotrin 81 mg EC Tablet] 81 mg PO DAILY 30 Days #30 tabec 11/11/17 Atorvastatin Calcium [Lipitor 10 mg Tablet] 10 mg PO QHS 30 Days #30 tablet 06/24 History of Present Illness History of Present Illness: JAYSON OLSEN is a 47 year old female past medical history of hypertension , irritable bowel syndrome, hypothyroidism, fibromyalgia, hypokalemia, GERD, precancerous colonic polyp last colonoscopy/upper GI endoscopy 3 years ago. Patient gets colonoscopy every 5 years. Patient presented to ED complaining of numbness and tingling on the left upper extremity and weakness on the left leg. Patient states that yesterday evening she started having tingling on her left side of the neck going down to the left upper extremity. She did not make too much of it the following day at work she noticed that her left upper extremity tingling increased accompanied with dizziness and left lower extremity weakness. Patient denies any palpitation, chest pain or loss of consciousness however she states that she was out of balance, when walking she would lean to the right side. She denies any fever, chills, nausea, vomiting, diarrhea, constipation or any urinary symptoms. Hospital Course Hospital Course: JAYSON OLSEN is a 47 year old female past medical history of hypertension , irritable bowel syndrome, hypothyroidism, fibromyalgia, hypokalemia, GERD, precancerous colonic polyp last colonoscopy/upper GI endoscopy 3 years ago. Patient gets colonoscopy every 5 years. Assessment & Plan (1) TIA (transient ischemic attack) CT head negative CTA head and neck negative. Troponins and EKG unremarkable. Admitted to Tele. 2D Echo and MRI brain wnl. Started low-dose aspirin and statins. Received PT OT ST (2) HTN (hypertension) Normotensive and Euvolumic lisinopril at 20 mg. Adjust dosage as needed. Monitor vitals (3) Hyperthyroidism Restarted levothyroxine. No signs of hyper or hypothyroidism on physical examination and review of system (4) Fibromyalgia Restarted Cymbalta. (5) GERD (gastroesophageal reflux disease) Started on PPI. Patient has had upper GI endoscopy 3 years ago which was normal. Physical Exam Vital Signs: Temp Pulse Resp BP Pulse Ox 98.8 F 59 L 14 113/73 98 11/11/17 11:21 11/11/17 11:21 11/11/17 11:21 11/11/17 11:21 11/11/17 11:21 Intake & Output 11/10/17 11/11/17 11/12/17 06:59 06:59 06:59 Intake Total 200 1218 Balance 200 1218 Weight 87.2 kg General appearance: PRESENT: no acute distress, obese, well-developed, well- nourished Head exam: PRESENT: atraumatic, normocephalic Eye exam: PRESENT: conjunctiva pink, EOMI, PERRLA. ABSENT: scleral icterus Ear exam: PRESENT: normal external ear exam Mouth exam: PRESENT: moist, tongue midline Neck exam: ABSENT: carotid bruit, JVD, lymphadenopathy, thyromegaly Respiratory exam: PRESENT: clear to auscultation cesar. ABSENT: rales, rhonchi, wheezes Cardiovascular exam: PRESENT: RRR. ABSENT: diastolic murmur, rubs, systolic murmur Pulses: PRESENT: normal dorsalis pedis pul Vascular exam: PRESENT: normal capillary refill GI/Abdominal exam: PRESENT: normal bowel sounds, soft. ABSENT: distended, guarding, mass, organolmegaly, rebound, tenderness Rectal exam: PRESENT: deferred Extremities exam: PRESENT: full ROM. ABSENT: calf tenderness, clubbing, pedal edema Neurological exam: PRESENT: alert, awake, oriented to person, oriented to place , oriented to time, oriented to situation, CN II-XII grossly intact. ABSENT: motor sensory deficit Psychiatric exam: PRESENT: appropriate affect, normal mood. ABSENT: homicidal ideation, suicidal ideation Skin exam: PRESENT: dry, intact, warm. ABSENT: cyanosis, rash Results Laboratory Results: 11/11/17 04:39 11/11/17 04:39 11/11/17 11/11/17 04:39 04:39 WBC 6.6 RBC 4.00 Hgb 11.6 L Hct 32.9 L MCV 82 MCH 29.0 MCHC 35.2 RDW 13.4 Plt Count 251 Seg Neutrophils % 58.9 Lymphocytes % 28.5 Monocytes % 7.4 Eosinophils % 4.5 Basophils % 0.7 Absolute Neutrophils 3.9 Absolute Lymphocytes 1.9 Absolute Monocytes 0.5 Absolute Eosinophils 0.3 Absolute Basophils 0.0 Sodium 142.7 Potassium 3.3 L Chloride 106 Carbon Dioxide 29 Anion Gap 8 BUN 13 Creatinine 0.73 Est GFR ( Amer) > 60 Est GFR (Non-Af Amer) > 60 Glucose 107 Calcium 8.4 Total Bilirubin 0.6 AST 31 ALT 49 Alkaline Phosphatase 85 Total Protein 5.7 L Albumin 3.0 L Triglycerides 85 Cholesterol 135.08 LDL Cholesterol Direct 71 VLDL Cholesterol 17.0 HDL Cholesterol 47 11/10/17 16:37 Troponin I < 0.012 Impressions: Head MRI 11/10/17 00:00 IMPRESSION: NORMAL MRI OF THE BRAIN WITHOUT INTRAVENOUS GADOLINIUM CONTRAST. EVIDENCE OF ACUTE STROKE: NO. Chest X-Ray 11/10/17 12:16 IMPRESSION: NO ACUTE RADIOGRAPHIC FINDING IN THE CHEST. Head CT 11/10/17 14:35 IMPRESSION: 1. Negative noncontrast CT brain. 2. Negative CTA [place]. 3. Negative CTA carotids. 4. Apical lung changes as above, suspect a large bulla in the left apex. Head CTA 11/10/17 14:39 IMPRESSION: 1. Negative noncontrast CT brain. 2. Negative CTA [place]. 3. Negative CTA carotids. 4. Apical lung changes as above, suspect a large bulla in the left apex. Neck CTA 11/10/17 14:39 IMPRESSION: 1. Negative noncontrast CT brain. 2. Negative CTA [place]. 3. Negative CTA carotids. 4. Apical lung changes as above, suspect a large bulla in the left apex. Carotid Doppler Study 11/10/17 17:18 IMPRESSION: NO HEMODYNAMICALLY SIGNIFICANT STENOSIS.
== END 2017-11-11 15:32 | disposition home or self-care (01) ==
LOC: ER 11:57 → INTOOBSV 16:32 → EH 16:32 → 3W 18:26
PROVIDERS: ADMIT Emergency Medicine; ATTEND Emergency Medicine
DX: G45.9 Transient cerebral ischemic attack, unspecified (principal); I10 Essential (primary) hypertension; E05.90 Thyrotoxicosis, unspecified without thyrotoxic crisis or storm; M79.7 Fibromyalgia; K21.9 Gastro-esophageal reflux disease without esophagitis; R29.702 NIHSS score 2; R60.0 Localized edema; R53.1 Weakness; Z79.82 Long term (current) use of aspirin; Z79.899 Other long term (current) drug therapy; Z90.49 Acquired absence of other specified parts of digestive tract; Z23 Encounter for immunization
CPT/HCPCS: 93005; 99291; 36415 ×2; 82553; 82550; 85025 ×2; 80053 ×2; 81001; 84484; 83036; 80061; 93306; 93880; 70551; 71046; 70450; 70496; 70498; 90686; 93010; 97110 ×2; 97116; 97162; 97166; J3490 ×3; J1650; J7030; G0378